=== PATIENT | male | born 1965 | race African-American/Black ===

== ENCOUNTER 2018-03-16 10:34 | Emergency (ER) | payer OTHER ==
[~2018-03-16] VITALS: Ht 172.7 cm; Wt 127.3 kg
[2018-03-16 10:47] VITALS: Ht 172.7 cm; Wt 127.3 kg
[2018-03-16] MEDS ORDERED: VOLTAREN75 MG PO (15:09)
[2018-03-16] MEDS ORDERED: VIBRAMYCIN 100100 MG PO (15:09)
[2018-03-16 16:24] VITALS: BP 170/100
== END 2018-03-16 15:50 | disposition home or self-care (01) ==
LOC: D.ER 10:34
DX: L03.116 Cellulitis of left lower limb (principal); E11.9 Type 2 diabetes mellitus without complications; F17.200 Nicotine dependence, unspecified, uncomplicated

== ENCOUNTER → 2018-07-04 12:05 | Outpatient (CLI) | payer OTHER ==
[~2018-07-04 12:05] MED LIST: VIBRAMYCIN 100100 MG PO; VOLTAREN75 MG PO
== END | disposition home or self-care (01) ==
LOC: D.RAD 12:05
DX: R05 Cough (principal)

== ENCOUNTER → 2018-07-14 10:43 | Outpatient (CLI) | payer OTHER ==
[2018-03-16 10:47] VITALS: BMI 42.6
--- NOTE | 2018-07-20 13:33 | EC ---
PATIENT:GOLDEN BRODY DATE OF SERVICE: 07/14/18 SEX: M MEDICAL RECORD: [id number] DATE OF : 67 [facility] AGE OF PATIENT: 53 ADMISSION DATE: 07/14/18 REFERRING PHYSICIAN: INTERPRETING PHYSICIAN: JANESSA KATZ MD ECHOCARDIOGRAM REPORT ECHO CHARGES 4 ECHO COMPLETE Date: 07/14/18 CLINICAL DIAGNOSIS: CP/ANGINA/MURMUR/ABNORMAL EKG H/O HTN ECHOCARDIOGRAPHIC MEASUREMENTS (adult normal given) AC root (d.<3.7cm) 3.1 cm LV Septum d (<1.2 cm> 1.5 cm Valve Excursion 2.0 cm LV Septum (systole) 2.0 cm Left Atria (s.<4.0cm> 3.9 cm LVPW d(<1.2cm) 1.0 cm RV (d.<2.3cm) 3.0 cm LVPW (sytole) 1.4 cm LV diastole(<5.6CM) 5.9 cm MV E-F(>70mm/sec) cm LV systole 3.9 cm LVOT Diameter 2.1 cm MV exc.(>10mm) cm Est.ejection fraction (50-75%) % DOPPLER: LVIT cm/sec A 39.0 cm/sec E 80.0 cm/sec LA cm/sec RVSP 23.0 mmHg LVOT 97.0 cm/sec AOP1/2T m/s Asc. Ao 97.0 cm/sec RVOT 63.0 cm/sec RA cm/sec PA 84.0 cm/sec AV Gradient Peak 3.8 mmHg AV Mean 2.5 mmHg AV Area 3.6 cm MV Gradient Peak 5.5 mmHg MV Mean 1.6 mmHg MV Area cm COMMENTS: OP - HC Husker Operator: 1 VISHAL SEAYOE Contract Attorney: 3 Dr. You TAPE# PACS Pericardial Effusion N DATE OF SERVICE: Adequate 2D, color flow, spectral Doppler, and M-Mode. LVH is present. LV internal dimension is normal. Wall motion is normal. EF is greater than or equal to 55%. Aortic valve is tricuspid. No evidence of stenosis by Doppler interrogation. Left atrium normal at 3.9 cm. Mitral valve shows no prolapse. Trace MR. Right-sided chambers grossly normal. Trace TR. TRANSINT:[id number] Voice Confirmation ID: [id number] DOCUMENT ID: [id number] ECHOCARDIOGRAM REPORT [id number] GOLDEN BRODY,JANESSA Mckeon MD at 1333 CC: [id number] DICTATION DATE: 07/18/18 1304 INSTALLATION DRAFTER: 07/18/18 1404 DEP CLI 07/14/18 [place] [id number] [place] [id number]
--- NOTE | 2018-07-27 10:38 | ST ---
PATIENT:GOLDEN BRODY MEDICAL RECORD: [id number] SEX: M LOCATION:[facility] ORDER #: ADMISSION DATE: 07/14/18 AGE OF PATIENT: 53 REFERRING PHYSICIAN: INTERPRETING PHYSICIAN: PHUC GALLEGO MD DATE OF SERVICE: 07/14/2018 PROCEDURE: Nuclear stress test. INDICATION: Angina, abnormal ECG, hypertension, hyperlipidemia, and diabetes. He was exercised on standard Lexiscan protocol with 33 mCi of sestamibi injected at peak stress, 10 mCi were used previously for rest images. FINDINGS: Gated SPECT reveals preserved ejection fraction at 64% with good wall motion and thickening and brightening throughout all segments. SPECT imaging Cardiolite was used as myocardial fusion agent. There is homogeneous uptake throughout all segments at rest and stress with no evidence of inducible ischemia or previous infarction. OVERALL IMPRESSION: 1. This is a normal nuclear stress test with no evidence of inducible ischemia or previous infarction. 2. Gated SPECT reveals a preserved ejection fraction at 64%. In this patient with ongoing symptomatology, the current scan does not suggest the presence of hemodynamically significant coronary artery disease. Evaluate noncardiac etiology of chest pain. TRANSINT:[id number] Voice Confirmation ID: [id number] DOCUMENT ID: [id number] PHUC GALLEGO MD at 1038 CC: [id number] DICTATION DATE: 07/14/18 1700 TOMBSTONE CARVER: 07/15/18 1137 DEP CLI 07/14/18 [place] [id number] [place] [address]
== END | disposition home or self-care (01) ==
LOC: D.HCCARDIO 10:30
PROVIDERS: ATTEND Internal Medicine Interventional Cardiology
DX: R07.9 Chest pain, unspecified (principal); I20.9 Angina pectoris, unspecified

== ENCOUNTER → 2018-07-18 14:02 | Outpatient (CLI) | payer OTHER ==
[2018-03-16 10:47] VITALS: BMI 42.6
== END | disposition home or self-care (01) ==
LOC: D.MRI 14:02
PROVIDERS: ATTEND Orthopaedic Surgery
DX: M54.12 Radiculopathy, cervical region (principal)

== ENCOUNTER → 2018-10-10 08:19 | Outpatient (CLI) | payer MEDICAID ==
[2018-03-16 10:47] VITALS: BMI 42.6
== END | disposition home or self-care (01) ==
LOC: D.MRI 08:19
PROVIDERS: ATTEND Nurse Practitioner Family
DX: M25.562 Pain in left knee (principal)